=== PATIENT | male | born 1965 | race Two or more races ===

== ENCOUNTER 2019-11-10 08:47 | Day surgery (SDC) | payer BC ==
[~2019-11-10] VITALS: Ht 176.5 cm; Wt 84.4 kg
[2019-11-10] VITALS (9 sets, daily range): BP systolic 102–131; BP diastolic 55–80
[2019-11-10] MEDS ORDERED: LR 1000ml 1,000 ML IVLG SCH ×2 (10:33→10:39)
--- NOTE | 2019-11-10 10:43 | Anethesia Preoperative Eval ---
Anesthesia Pre-op PMH/ROS General Date of Evaluation: Nov 10, 2019 Time of Evaluation: 10:41 Anesthesiologist: anselmo ASA Score: ASA 2 Mallampati Score Class I : Soft palate, uvula, fauces, pillars visible Class II: Soft palate, uvula, fauces visible Class III: Soft palate, base of uvula visible Class IV: Only hard plate visible Mallampati Classification: Class II Surgeon: kory Diagnosis: gerd/colon screening Surgical Procedure: egd/colonoscopy Anesthesia History: none Social History: smoking - nonsmoker Family History: no anesthesia problems Allergies: Coded Allergies: No Known Allergies (Unverified , 11/10/19) Medications: see eMAR Patient NPO?: Yes Past Medical History Cardiovascular: Reports: other - hypercholesterolemia Anesthesia Pre-op Phys. Exam Physician Exam Last Vital Signs Date Time Temp Pulse Resp B/P (MAP) Pulse Ox O2 Delivery O2 Flow Rate FiO2 11/10/19 10:05 96.9 62 20 102/64 99 Room Air Constitutional: NAD Neurologic: CN 2-12 intact Cardiovascular: RRR Respiratory: CTA Gastrointestinal: S/NT/ND Airway Exam Mallampati Score: Class II MO: full Neck: flexible TMD: 2fb ROM: full Anesthesia Pre-op A/P Risk Assessment & Plan Assessment: asa2 Plan: mac Status Change Before Surgery: No Pre-Antibiotics Drug: Jaqueline Bundy MD Nov 10, 2019 10:43
[2019-11-10] MEDS ORDERED: DiphenhydrAMINE 50mg/ml Inj IVP PRN (10:45)
[2019-11-10] MEDS ORDERED: Atropine Inj 1mg/10ml Syr IV PRN (10:45)
[2019-11-10] MEDS ORDERED: Midazolam 2mg/2ml Inj IVP PRN (10:45)
[2019-11-10] MEDS ORDERED: fentaNYL 100 mcg/2 mL IV PRN (10:45)
--- NOTE | 2019-11-10 10:52 | Pre-Procedure Note/Attestation ---
Pre-Procedure Note/Attestation Complete Prior to Procedure Planned Procedure: not applicable Procedure Narrative: esophagogastroduodenoscopy and colonoscopy Indications for Procedure Pre-Operative Diagnosis: screening colon, GERD Attestation I attest that I discussed the nature of the procedure; its benefits; risks and complications; and alternatives (and the risks and benefits of such alternatives ), prior to the procedure, with the patient (or the patient's legal hr representative). I attest that, if there was a reasonable possibility of needing a blood transfusion, the patient (or the patient's legal hr representative) was given the [facility] standardized written summary, pursuant to the [place] Blood Safety Act ([place] Health and Safety Code # 1645, as amended). I attest that I re-evaluated the patient just prior to the surgery and that there has been no change in the patient's H&P, except as documented below: Aiden Lopez MD Nov 10, 2019 10:52
--- NOTE | 2019-11-10 10:53 | Short Stay Surgery H&P ---
History of Present Illness History of Present Illness Chief Complaint screening colon, GERD HPI Nikhil Miller is a 54 year old male who was admitted on for Screening And Gerd Patient History Allergies: Coded Allergies: No Known Allergies (Unverified , 11/10/19) PAST MEDICAL HISTORY: (1) Hypercholesteremia Review of Systems Cardiovascular: Reports: no symptoms Respiratory: Reports: no symptoms Skeletal: Reports: no symptoms Gastrointestinal: Reports: no symptoms Genitourinary: Reports: no symptoms Neurologic: Reports: no symptoms Endocrine: Reports: no symptoms Hematologic: Reports: no symptoms Physical Exam Vital Signs Last Vital Signs Date Time Temp Pulse Resp B/P (MAP) Pulse Ox O2 Delivery O2 Flow Rate FiO2 11/10/19 10:05 96.9 62 20 102/64 99 Room Air Skin: normal HENT: normal Heart: normal Lungs: normal Abdomen: normal Extremities: normal Plan Plan of Care esophagogastroduodenoscopy and colonoscopy Attestation Are the patient's medical conditions optimized for surgery? Attestation Response: yes Aiden Lopez MD Nov 10, 2019 10:53
[2019-11-10] MEDS ORDERED: Lidocaine 1% MPF 10mg/ml 5ml ONE (11:00)
[2019-11-10] MEDS ORDERED: LR 1000ml ONE (11:00)
[2019-11-10] MEDS ORDERED: Propofol 200mg/20ml IV ONE (11:00)
--- NOTE | 2019-11-10 11:22 | Endoscopy Procedure Note ---
Endoscopy Procedure Note General Indication for Procedure: screening, GERD Procedures Performed: EGD, colonoscopy Operative Findings/Diagnosis: gastritis, diverticiosis Specimen: yes Pt Tolerated Procedure Well: Yes Estimated Blood Loss: none Anesthesia Anesthesiologist: nigel ying Anesthesia: MAC Inserted Devices Implant(s) used?: No Quality Quality of Bowel Preparation: Good Did scope reach the cecum?: Yes Was there any complications?: No GI Core Measures 50 yrs or older w/o bx or poly: No 10yrs. F/U recommended: Yes If not recommended, why?: Above average risk 18 years or older w/prev. colo: No Aiden Lopez MD Nov 10, 2019 11:22
--- NOTE | 2019-11-10 13:23 | Immediate Post-Op Evaluation ---
Immediate Post-Op Evalulation Immediate Post-Op Evalulation Procedure: egd/colonoscopy w/bx Date of Evaluation: Nov 10, 2019 Time of Evaluation: 11:39 IV Fluids: 700ml lr Blood Products: none Estimated Blood Loss: negligible Blood Pressure Systolic: 120 Blood Pressure Diastolic: 60 Pulse Rate: 71 Respiratory Rate: 18 O2 Sat by Pulse Oximetry: 99 Temperature (Fahrenheit): 98.2 Pain Score (1-10): 0 Nausea: No Vomiting: No Complications none Patient Status: awake, reacts, patent Hydration Status: adequate Drug: Jaqueline Bundy MD Nov 10, 2019 13:23
--- NOTE | 2019-11-10 13:24 | 48 Hour Post Anesthesia Eval ---
Post Anesthesia Evaluation Procedure: egd/colonoscopy w/bx Date of Evaluation: Nov 10, 2019 Time of Evaluation: 11:41 Blood Pressure Systolic: 115 0: 55 Pulse Rate: 79 Respiratory Rate: 18 Temperature (Fahrenheit): 98.2 O2 Sat by Pulse Oximetry: 99 Airway: patent Nausea: No Vomiting: No Pain Intensity: 0 Hydration Status: adequate Cardiopulmonary Status: stable Mental Status/LOC: patient returned to baseline Post-Anesthesia Complications: none Follow-up care needed: N/A Jaqueline Yi MD Nov 10, 2019 13:24
--- NOTE | 2019-11-10 15:15 | Procedure Note ---
DATE OF PROCEDURE: 11/10/2019 SURGEON: Aiden Lopez M.D. PROCEDURE: Upper endoscopy with biopsy and colonoscopy. ANESTHESIA: Per Dr. Us. INSTRUMENT: Olympus adult flexible upper endoscope and colonoscope. REASON FOR PROCEDURE: The procedure, risks, benefits, and possible consequences, including hemorrhage, aspiration, perforation and infection, and alternative treatments, were explained to the patient/legal guardian by Dr. Aiden Lopez and the patient/legal guardian understood and accepted these risks. INDICATION: Screening colonoscopy, evaluation of chronic GERD. DESCRIPTION OF PROCEDURE: After informed consent was obtained and the patient was adequately sedated, Olympus upper endoscope was advanced from mouth into the second portion of the duodenum and retroflexion was performed in the stomach. The patient had evidence of diffuse gastritis. Random biopsies from antrum and body was obtained to rule out H. pylori infection. The patient also had few fundic gland polyps, which were not biopsied. At this time, the upper endoscope was removed and the patient was turned over for colonoscopy. First, rectal exam was performed, which was normal. Then, the scope was advanced from rectum into the cecum and then subsequently to terminal ileum. Quality of prep overall was good. The patient had no evidence of any polyps seen in this colonoscopy examination. There was evidence of moderate diverticulosis in the left colon. In the rectum, retroflexion was performed, which showed no evidence of any obvious hemorrhoids. The patient tolerated procedure without any complication. SUMMARY OF FINDINGS: 1. Gastritis, status post biopsy. 2. Gastric polyps, most probably fundic gland polyps. 3. Diverticulosis. RECOMMENDATIONS: Follow up biopsy results and treat accordingly. I want to thank, Dr. Mercedez Worrell, for this kind referral. Aiden Lopez M.D. DR: STANLEY JOB#: [id number] CC: Mercedez Worrell M.D.; Fax#: [phone]
== END 2019-11-10 12:40 | disposition home or self-care (01) ==
LOC: GAS 08:47
DX: Z12.11 Encounter for screening for malignant neoplasm of colon (principal); K31.7 Polyp of stomach and duodenum; K57.90 Diverticulosis of intestine, part unspecified, without perforation or abscess without bleeding; K21.9 Gastro-esophageal reflux disease without esophagitis; E78.00 Pure hypercholesterolemia, unspecified; K29.50 Unspecified chronic gastritis without bleeding
CPT/HCPCS: 43239; 45378; J2704; J7120; 94003; 94150